=== PATIENT | male | born 1985 | race Caucasian/White ===

== ENCOUNTER 2016-05-23 14:45 | Emergency (ER) | payer SELFPAY ==
[~2016-05-23] VITALS: Ht 190.5 cm; Wt 81.2 kg
[2016-05-23 14:47] VITALS: BP 154/89
== END 2016-05-23 15:30 | disposition home or self-care (01) ==
LOC: ED 15:10
DX: L03.211 Cellulitis of face (principal)
CPT/HCPCS: 99283